=== PATIENT | male | born 1970 | race Caucasian/White ===

== ENCOUNTER 2020-01-21 09:47 | Emergency (ER) | payer MEDICAID ==
[~2020-01-21] VITALS: Ht 182.9 cm; Wt 59.0 kg
[2020-01-21 10:10] VITALS: Ht 182.9 cm; Wt 59.0 kg
[2020-01-21 12:42] VITALS: BP 168/100
== END 2020-01-21 12:42 | disposition home or self-care (01) ==
LOC: ED 09:47
DX: M25.512 Pain in left shoulder (principal); I10 Essential (primary) hypertension; E11.9 Type 2 diabetes mellitus without complications; Z86.73 Personal history of transient ischemic attack (TIA), and cerebral infarction without residual deficits